=== PATIENT | female | born 1965 | race Caucasian/White ===

== ENCOUNTER → 2017-07-18 | Outpatient (CLI) | payer OTHER | LOC: MC.RAD 07:17 | DX: N60.01 Solitary cyst of right breast (principal); N63 Unspecified lump in breast ==

== ENCOUNTER → 2018-08-31 | Outpatient (CLI) | payer OTHER | LOC: MC.RAD 10:59 | DX: Z12.31 Encounter for screening mammogram for malignant neoplasm of breast (principal); N63.10 Unspecified lump in the right breast, unspecified quadrant ==

== ENCOUNTER → 2018-09-09 | Outpatient (CLI) | payer OTHER | LOC: MC.RAD 09-07 07:00 | DX: N60.01 Solitary cyst of right breast (principal) ==

== ENCOUNTER → 2020-03-03 | Outpatient (CLI) | payer BC | LOC: MC.RAD 01-24 14:00 | DX: Z12.31 Encounter for screening mammogram for malignant neoplasm of breast (principal) ==